=== PATIENT | female | born 1960 | race Caucasian/White ===

== ENCOUNTER → 2017-01-02 | Outpatient (CLI) | payer BC | LOC: MC.RAD 11:38 | DX: Z12.31 Encounter for screening mammogram for malignant neoplasm of breast (principal) ==

== ENCOUNTER → 2017-11-14 | Outpatient (CLI) | payer BC ==
[~2017-11-14] VITALS: Ht 170.2 cm; Wt 63.4 kg
[~2017-11-14] MED LIST: INTEGRA PO; PROZAC 20MG20 MG PO; [UNRECOGNIZED DRUG - CODE] PO
[2017-11-14 12:06] VITALS: BP 136/80; PULSE 105
[2017-11-14 13:10] VITALS: BP 135/67; PULSE 96
== END ==
LOC: COL.RAD 11:51
DX: R59.0 Localized enlarged lymph nodes (principal); D64.9 Anemia, unspecified
CPT/HCPCS: 25757

== ENCOUNTER → 2018-02-24 | Outpatient (CLI) | payer BC | LOC: MC.RAD 07:40 | DX: Z12.31 Encounter for screening mammogram for malignant neoplasm of breast (principal) ==

== ENCOUNTER → 2019-03-26 | Outpatient (CLI) | payer BC | LOC: MC.RAD 07:38 | DX: Z12.31 Encounter for screening mammogram for malignant neoplasm of breast (principal) ==

== ENCOUNTER → 2020-05-06 | Outpatient (CLI) | payer BC | LOC: COL.RAD 11:26 | DX: C88.0 Waldenstrom macroglobulinemia (principal); H93.13 Tinnitus, bilateral; R59.0 Localized enlarged lymph nodes | CPT/HCPCS: Q9967 ==

== ENCOUNTER → 2020-06-08 | Outpatient (CLI) | payer BC | LOC: MC.RAD 05-26 14:45 | DX: Z12.31 Encounter for screening mammogram for malignant neoplasm of breast (principal) ==

== ENCOUNTER → 2021-06-20 | Outpatient (CLI) | payer BC | LOC: MC.RAD 16:34 | DX: Z12.31 Encounter for screening mammogram for malignant neoplasm of breast (principal) ==

== ENCOUNTER → 2021-11-20 | Outpatient (CLI) | payer BC | LOC: COL.RAD 09:58 | DX: C85.90 Non-Hodgkin lymphoma, unspecified, unspecified site (principal) | CPT/HCPCS: Q9967 ==

== ENCOUNTER → 2022-07-02 | Outpatient (CLI) | payer BC | LOC: MC.RAD 08:07 | DX: Z12.31 Encounter for screening mammogram for malignant neoplasm of breast (principal); N64.89 Other specified disorders of breast ==

== ENCOUNTER → 2022-07-10 | Outpatient (CLI) | payer BC | LOC: MC.RAD 13:24 | DX: N63.11 Unspecified lump in the right breast, upper outer quadrant (principal) ==

== ENCOUNTER → 2023-01-14 | Outpatient (CLI) | payer BC | LOC: MC.RAD 08:00 | DX: Z12.31 Encounter for screening mammogram for malignant neoplasm of breast (principal); R92.8 Other abnormal and inconclusive findings on diagnostic imaging of breast; N63.10 Unspecified lump in the right breast, unspecified quadrant ==

== ENCOUNTER → 2024-09-17 | Outpatient (CLI) | payer BC | LOC: MC.RAD 07:21 | DX: Z12.31 Encounter for screening mammogram for malignant neoplasm of breast (principal); N64.89 Other specified disorders of breast ==

== ENCOUNTER → 2024-09-18 | Outpatient (CLI) | payer BC | LOC: MC.RAD 13:44 | DX: R92.8 Other abnormal and inconclusive findings on diagnostic imaging of breast (principal) ==